=== PATIENT | male | born 2000 | race Caucasian/White ===

== ENCOUNTER 2024-08-17 23:17 | Emergency (ER) | payer SELFPAY ==
[2024-08-17 23:21] VITALS: BP 145/79; PULSE 76; TEMP 37.1; O2SAT 98; BMI 24.4
--- NOTE | 2024-08-17 23:43 | ECG_ITS ---
The [facility] Test Date: 2024-08-17 Pat Name: JUSTIN MADDEN Department: Room: - Gender: Male Filen[employer] Developer: : 2000 Requested By: [id number] Order Number: [id number] Reading MD: SAQIB GASPAR Measurements Intervals [place] Rate: 63 P: 19 TN: 140 QRS: 89 QRSD: 118 T: 71 QT: 378 QTc: 385 Interpretive Statements 1100 Sinus rhythm 1102 Sinus arrhythmia 2440 Incomplete right bundle branch block 25006 Early repolarization 9130 borderline ECG No previous ECG available for comparison Electronically Signed On 08-18-2024 12:44:44 EDT by SAQIB GASPAR
--- NOTE | 2024-08-17 23:43 | XR_ITS ---
The [address] [address] Patient Name: JUSTIN MADDEN MRN: [id number] date: 2000 Sex: M Assigned Patient Location: ER Current Patient Location: ER Accession/Order Number: [id number] Exam Date: 08/17/2024 23:48 Report Date: 08/18/2024 00:38 At the request of: MARGE MAYA Procedure: XR chest 1V EXAMINATION:XR chest 1V INDICATION:Chest pain COMPARISON:None TECHNIQUE:A single frontal view of the chest is submitted. FINDINGS: The cardiomediastinal silhouette is not enlarged. The pulmonary vascularity is within normal limits. The lungs are clear based on chest radiography. There is no costophrenic angle blunting. XR/XR chest 1V IMPRESSION: Unremarkable plain film examination of the chest. Electronically authenticated by: BEN ZAVALA Date: 08/18/2024 00:38
--- NOTE | 2024-08-17 23:44 | ED_ITS ---
HPI HPI - General Adult General Chief complaint: Upper Respiratory Infection Stated complaint: Upper Respiratory Infection Time Seen by Provider: 08/17/24 23:29 Source: patient Mode of arrival: walk-in History of Present Illness HPI narrative: 23-year-old male presents to the emergency department for pain in his right lower anterior rib area which now goes up into his sternal area. It started 2 days ago and he has had a slight cough. There was no injury or unusual activity. He was seen at another facility yesterday and some tests were performed but no specific cause was found and he was told he has pleurisy. No hemoptysis or abdominal pain. He states he has not had a bowel movement in a few days. Related Data Previous Rx's ?Medication ?Instructions ?Recorded ibuprofen 800 mg tablet 800 mg PO Q8H PRN pain #20 tabs 08/18/24 Allergies Allergy/AdvReac Type Severity Reaction Status Date / Time No Known Drug Allergies Allergy Verified 08/17/24 23:25 Opioid HPI Opioid Management Most Recent Opioid Data: No Data to Display Review of Systems ROS Narrative A ten point review of systems is negative except as noted above. Exam Narrative Exam Narrative: Nurses note and vital signs reviewed and patient is not hypoxic. General: The patient appears well and in no apparent distress. Patient is resting comfortably on cart. Skin: Warm, dry, no pallor noted. There is no rash noted. Head: Normocephalic, atraumatic Eye: Normal conjunctiva, no drainage Ears, Nose, Mouth, and Throat: oral mucosa is moist. Nares patent. Cardiovascular: Regular Rate and Rhythm Respiratory: Patient is in no distress, no accessory muscle use, lungs are clear to auscultation, no wheezing, rales or rhonchi. He has some palpable tenderness on his right lower anterior rib region but there is no crepitus bruise rash or abrasion. Back: non-tender, no CVA tenderness bilaterally to percussion. GI: no tenderness to palpation, no masses appreciated. No rebound, guarding, or rigidity noted. Musculoskeletal: The patient has no evidence of calf tenderness, no pitting edema, symmetrical pulses noted bilaterally Neurological: A&O, normal speech Psychiatric: Cooperative Constitutional Vital Signs, click to edit/add: Last Vital Signs Temp 98.8 F 08/17/24 23:21 Pulse 76 08/17/24 23:21 Resp 16 08/17/24 23:21 BP 145/79 H 08/17/24 23:21 Pulse Ox 98 08/18/24 00:07 O2 Del Method Room Air 08/18/24 00:07 Course Vital Signs Vital signs: Vital Signs Temperature 98.8 F 08/17/24 23:21 Pulse Rate 76 08/17/24 23:21 Respiratory Rate 16 08/17/24 23:21 Blood Pressure 145/79 H 08/17/24 23:21 Pulse Oximetry 98 08/17/24 23:21 Oxygen Delivery Method Room Air 08/17/24 23:21 Temperature 98.8 F 08/17/24 23:21 Pulse Rate 76 08/17/24 23:21 Respiratory Rate 16 08/17/24 23:21 Blood Pressure 145/79 H 08/17/24 23:21 Pulse Oximetry 98 08/18/24 00:07 Oxygen Delivery Method Room Air 08/18/24 00:07 Medical Decision Making MDM Narrative Medical decision making narrative: His workup here is negative including D-dimer and x-ray and his EKG. Studies from [facility] emergency department visit were reviewed and were negative. At that time he had negative blood work including negative troponin and negative x-ray of the ribs and chest x-ray. He is prescribed ibuprofen and my clinical impression at this point is that he has pleurisy. Treatment diagnosis and follow-up were discussed with the patient. Differential Diagnosis Differential Diagnosis: Pneumothorax, PE, pleurisy, chest wall pain Lab Data Lab results reviewed: Yes I reviewed the patient's lab results Labs: Lab Results 08/17/24 Range/Units 23:48 WBC 6.2 (4.0-11.0) 10^3/uL RBC 4.63 L (4.70-6.10) 10^6/uL Hgb 13.4 L (14.0-18.0) g/dL Hct 38.1 L (42.0-54.0) % MCV 82.3 (80.0-94.0) fL MCH 28.9 (25.9-34.0) pg MCHC 35.2 (29.9-35.2) g/dL RDW 11.4 (11.0-15.0) % Plt Count 218 (150-450) 10^3/uL MPV 10.0 (9.5-13.5) fL Neut % (Auto) 71.3 (43.0-75.0) % Lymph % (Auto) 17.0 L (20.5-60.0) % [place] % (Auto) 9.4 (1.7-12.0) % Eos % (Auto) 1.6 (0.9-7.0) % Baso % (Auto) 0.2 (0.2-2.0) % Neut # (Auto) 4.4 (1.4-6.5) 10^3/uL Lymph # (Auto) 1.1 L (1.2-3.8) 10^3/uL [place] # (Auto) 0.6 (0.3-0.8) 10^3/uL Eos # (Auto) 0.1 (0.0-0.7) 10^3/uL Baso # (Auto) 0.0 (0.0-0.1) 10^3/uL Abs Immat Gran (auto) 0.03 (0.00-0.03) 10^3/uL Imm/Tot Granulo (auto) 0.5 (0.0-0.5) % D-Dimer 0.28 (<=0.59) mg/L FEU Sodium 140 (136-145) mmol/L Potassium 3.7 (3.5-5.1) mmol/L Chloride 105 (98-107) mmol/L Carbon Dioxide 25.9 (21.0-32.0) mmol/L Anion Gap 12.8 BUN 16.0 (7.0-18.0) mg/dL Creatinine 1.08 (0.70-1.30) mg/dL Est GFR ( Amer) >60 (>=60 mL/min/1.73m^2) Est GFR (Non-Af Amer) >60 (>=60 mL/min/1.73m^2) BUN/Creatinine Ratio 14.8 Glucose 113 H (74-106) mg/dL Calcium 8.8 (8.5-10.1) mg/dL Influenza Type A Ag Negative Influenza Type B Ag Negative SARS-CoV-2 Ag (CV2AG) Negative (NEGATIVE) Imaging Data Chest x-ray: Radiologist's impression: ITS Impressions Chest X-Ray 08/17/24 23:43 IMPRESSION: Unremarkable plain film examination of the chest. Electronically authenticated by: BEN ZAVALA Date: 08/18/2024 00:38 ECG Data Attestation: I personally reviewed and interpreted this ECG as follows: (EKG on my interpretation shows normal sinus rhythm with rate of 63 and no acute change.) Discharge Plan Discharge Chief Complaint: Upper Respiratory Infection Clinical Impression: Pleurisy Patient Disposition: Home, Self-Care Time of Disposition Decision: 01:08 Condition: Good Mode of Transportation: Private Vehicle Prescriptions / Home Meds: New ibuprofen 800 mg tablet 800 mg PO Q8H PRN (Reason: pain) Qty: 20 0RF Print Language: Bahamian Instructions: Pleurisy (ED) Referrals: Physician,Non-Staff, MD [Primary Care Provider] - 1 week
[2024-08-18 00:07] VITALS: O2SAT 98
[2024-08-18 00:21] LABS: Basophils Percent Auto 0.2 % (0.2-2.0); Eosinophils Absolute Auto 0.1 10^3/uL (0.0-0.7); Eosinophils Percent Auto 1.6 % (0.9-7.0); Hematocrit 38.1 % (42.0-54.0); Hemoglobin 13.4 g/dL (14.0-18.0); Immature Granulocytes Abs Auto 0.03 10^3/uL (0.00-0.03); Immature Granulocytes Pct Auto 0.5 % (0.0-0.5); Lymphocytes Absolute Auto 1.1 10^3/uL (1.2-3.8); Mean Corpuscular HGB Conc 35.2 g/dL (29.9-35.2); Mean Corpuscular Hemoglobin 28.9 pg (25.9-34.0); Mean Corpuscular Volume 82.3 fL (80.0-94.0); Monocytes Absolute Auto 0.6 10^3/uL (0.3-0.8); Monocytes Percent Auto 9.4 % (1.7-12.0); Neutrophils Absolute Auto 4.4 10^3/uL (1.4-6.5); Neutrophils Percent Auto 71.3 % (43.0-75.0); Platelet Count 218 10^3/uL (150-450); Red Blood Count 4.63 10^6/uL (4.70-6.10); Red Cell Distribution Width 11.4 % (11.0-15.0); White Blood Count 6.2 10^3/uL (4.0-11.0)
[2024-08-18 00:25] LABS: Anion Gap 12.8; BUN Creatinine Ratio 14.8; Calcium 8.8 mg/dL (8.5-10.1); Carbon Dioxide 25.9 mmol/L (21.0-32.0); Chloride 105 mmol/L (98-107); Estimated GFR (African America >60 (>=60 mL/min/1.73m^2); Estimated GFR (Non-African Ame >60 (>=60 mL/min/1.73m^2); Glucose 113 mg/dL (74-106); Potassium 3.7 mmol/L (3.5-5.1); Sodium 140 mmol/L (136-145)
[2024-08-18 00:30] LABS: Influenza Virus A Antigen Negative; Influenza Virus B Antigen Negative; Internal Control Within Normal Limits; SARS-CoV-2 Ag NEGATIVE (NEGATIVE)
[2024-08-18 00:36] LABS: D Dimer 0.28 mg/L FEU (<=0.59)
[2024-08-18 01:19] VITALS: BP 129/72; PULSE 74; O2SAT 99
== END 2024-08-18 01:21 | disposition home or self-care (01) ==
PROVIDERS: Emergency Provider Emergency Medicine
DX: R09.1 Pleurisy (principal); Z20.822 Contact with and (suspected) exposure to COVID-19
CPT/HCPCS: 36415; 71045; 80048; 85025; 85378; 87804; 87811; 93005; 99285